=== PATIENT | female | born 1990 | race Caucasian/White ===

== ENCOUNTER 2019-09-13 09:02 | Emergency (ER) | payer OTHER, SELFPAY ==
[2019-09-13 09:30] VITALS: BP 111/87; PULSE 99; RESP 18; TEMP 36.8; O2SAT 100
[2019-09-13 09:56] VITALS: O2SAT 100
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
[2019-09-13 10:32] VITALS: BP 128/74; PULSE 85; RESP 20; TEMP 36.6; O2SAT 99
== END 2019-09-13 10:36 | disposition home or self-care (01) ==
PROVIDERS: Emergency Provider Family Medicine; PCP Physician Assistant
DX: J45.901 Unspecified asthma with (acute) exacerbation (principal)
CPT/HCPCS: 99283

== ENCOUNTER 2019-10-01 12:19 | Outpatient (CLI) | payer OTHER, SELFPAY | END 2019-10-01 12:20 | disposition home or self-care (01) | LOC: CHSLAB 12:21 | PROVIDERS: PCP Physician Assistant; Visit Provider Physician Assistant | DX: J30.2 Other seasonal allergic rhinitis (principal) | CPT/HCPCS: 36415; 82785; 86003 ==

== ENCOUNTER 2020-03-17 11:49 | Outpatient (CLI) | payer OTHER, SELFPAY ==
[2020-03-18 14:04] LABS: SARS-CoV-2 RNA PCR Negative
== END 2020-03-17 11:50 | disposition home or self-care (01) ==
LOC: CHSLAB 11:52
PROVIDERS: PCP Physician Assistant; Visit Provider Physician Assistant
DX: B34.9 Viral infection, unspecified (principal); Z20.828 Contact with and (suspected) exposure to other viral communicable diseases
CPT/HCPCS: 87635; C9803; U0003

== ENCOUNTER 2020-06-16 15:50 | Outpatient (RCR) | payer OTHER, SELFPAY ==
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
== END 2020-07-29 18:09 | disposition home or self-care (01) ==
LOC: CHSPT 15:50
DX: M54.2 Cervicalgia (principal)
CPT/HCPCS: 97014; 97110; 97140; 97161; G0283

== ENCOUNTER 2021-01-14 10:42 | Emergency (ER) | payer OTHER, SELFPAY ==
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
--- NOTE | ~2021-01-14 | XR_ITS ---
EXAMINATION: XR hip RT min 3V w AP pelvis INDICATION: Right hip pain TECHNIQUE: AP view of the pelvis and two views of the right hip are obtained. COMPARISON: None available FINDINGS: Bone alignment is normal. There is no fracture. The soft tissues are unremarkable. An IUD i s noted. IMPRESSION: 1. No acute osseous abnormality. Reviewed, dictated and finalized at location A.
[2021-01-14 10:21] VITALS: BP 121/85; PULSE 84; RESP 16; TEMP 36.9; O2SAT 99
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
[2021-01-14] MEDS: KETOROLAC 30 MG/ML VIAL (*BKC) IV PUSH (11:50)
[2021-01-14] MEDS: diazePAM INJ (*CRX) 10 MG/2 ML SYRINGE 5 MG IV PUSH (11:51)
[2021-01-14] MEDS: ACETAMINOPHEN 500 MG TABLET 1000 MG PO (12:52)
== END 2021-01-15 04:50 | disposition home or self-care (01) ==
PROVIDERS: Emergency Provider Emergency Medicine
DX: S16.1XXA Strain of muscle, fascia and tendon at neck level, initial encounter (principal); S73.101A Unspecified sprain of right hip, initial encounter; F41.9 Anxiety disorder, unspecified; F32.9 Major depressive disorder, single episode, unspecified; F17.210 Nicotine dependence, cigarettes, uncomplicated; V43.52XA Car driver injured in collision with other type car in traffic accident, initial encounter; Y92.410 Unspecified street and highway as the place of occurrence of the external cause
CPT/HCPCS: 72125; 72131; 73502; 81025; 96374; 96375; 99284; A9270; J1885; J3360

== ENCOUNTER 2021-02-02 13:00 | Outpatient (RCR) | payer OTHER, SELFPAY ==
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
--- NOTE | 2021-02-16 13:19 | PTOPEVAL ---
Thank you for referring Jennifer Castillo to [facility].? The patient is scheduled to be seen for therapy? ____x/week for ___ weeks. Please review, sign, date and return this plan of care TIMMY. I agree with and certify that the following plan of care is medically necessary. Referring Physician Date Admitting Provider: Attending Provider: Arlene Mack, JENNIFER Referring Provider: *PT Outpatient Evaluation Start: 02/02/21 13:04 Freq: Status: Active Protocol: Document 02/16/21 11:00 [facility] (Rec: 02/16/21 13:17 [facility] [id number]) Therapy Assessment Status Assessment Status Assessment Status Progress Outpatient Past Medical History Neurological History Hx Migraine Yes Cardiovascular History Hx Cardiac Disorders No Significant History Respiratory History Hx Asthma Yes Gastrointestinal History Hx Gastrointestinal Disorders No Significant History Genitourinary History Hx Genitourinary Disorders No Significant History Musculoskeletal History Hx Back Pain Yes Hematological History Hx Hematological Disorders No Significant History Endocrine History Hx Endocrine Disorders No Significant History HEENT History Hx HEENT Disorders No Significant History Psychosocial History Hx Attention Deficit Disorder Yes Hx Depression Yes Evaluation Information Problem Diagnosis R hip pain (M25.551), R sided low pain back pain with radiculopa (M54.41). Onset 01/14/21 Subjective Information patient reports she feels Query Text:As Reported By Patient/ alright this date. however, Family she was sore yesterday and had 5/10 pain unable to complete her last 30 minutes of work. patient reports her pain in the R anterior hip. she reports no radiation of symptoms into the R lower leg. she reports her back does come out all the time and she needs to see her chriopractor. Pain Assessment Timing of Pain Assessment Timing of Pain Assessment Assessment Pain Scale Pain Scale Used Numeric (1 - 10) Self Report Pain Assessment Right Lower Back Reported Pain Level 0 Greatest Pain Intensity 5 Pain Score Pain Score 0: Self Report Interventions Used Interventions Used By Clinicians Activity or ADL's,Education, Exercise,Heat,Medication Lower Extremity Range of Motion General Lower Extremity Range of Motion Reason Not Measured
--- NOTE | 2021-03-29 14:22 | PTOPEVAL ---
Thank you for referring Jennifer Castillo to [facility] [place].? The patient is scheduled to be seen for therapy? ____x/week for ___ weeks. Please review, sign, date and return this plan of care TIMMY. I agree with and certify that the following plan of care is medically necessary. Referring Physician Date Admitting Provider: Attending Provider: Arlene Mack, JENNIFER Referring Provider: *PT Outpatient Evaluation Start: 02/02/21 13:04 Freq: Status: Active Protocol: Document 03/03/21 14:09 [facility] (Rec: 03/03/21 15:43 [facility] [email or web address]) Therapy Assessment Status Assessment Status Assessment Status Progress Outpatient Past Medical History Neurological History Hx Migraine Yes Cardiovascular History Hx Cardiac Disorders No Significant History Respiratory History Hx Asthma Yes Gastrointestinal History Hx Gastrointestinal Disorders No Significant History Genitourinary History Hx Genitourinary Disorders No Significant History Musculoskeletal History Hx Back Pain Yes Hematological History Hx Hematological Disorders No Significant History Endocrine History Hx Endocrine Disorders No Significant History HEENT History Hx HEENT Disorders No Significant History Psychosocial History Hx Attention Deficit Disorder Yes Hx Depression Yes Evaluation Information Problem Diagnosis low back pain with radiculopathy Onset 01/14/21 Subjective Information Patient states that she has Query Text:As Reported By Patient/ been doing her exercises and Family they are a lot easier. She states that she still gets sore by the end of the day at work, but it is not as bad as it was. She states that the L hip is starting to feel a little better. She still has pain in the hip flexor down the quad. Patient states that she still has quite a bit of pressure on the L side of the lumbar spine. Pain Assessment Timing of Pain Assessment Timing of Pain Assessment Assessment Pain Scale Pain Scale Used Numeric (1 - 10) Self Report Pain Assessment Left Lower Back Reported Pain Level 0 Greatest Pain Intensity 5 Right Lower Back Reported Pain Level 0 Greatest Pain Intensity 0 Pain Score Pain Score 0,0: Self Report Interventions Used Interventions Used By Clinicians Activity or ADL's,Electrical
== END 2021-03-31 10:19 | disposition home or self-care (01) ==
LOC: CHSPT 13:00
PROVIDERS: PCP Physician Assistant; Visit Provider Physician Assistant
DX: M25.551 Pain in right hip (principal); M54.41 Lumbago with sciatica, right side
CPT/HCPCS: 97014; 97110; 97140; 97161; G0283

== ENCOUNTER 2021-09-29 09:42 | Outpatient (CLI) | payer OTHER, SELFPAY ==
[2021-09-29 11:17] LABS: SARS-CoV-2 RNA PCR Negative (Negative)
== END 2021-09-29 09:43 | disposition home or self-care (01) ==
LOC: CHSLAB 09:49
PROVIDERS: PCP Physician Assistant; Visit Provider Physician Assistant
DX: Z20.822 Contact with and (suspected) exposure to COVID-19 (principal)
CPT/HCPCS: C9803; U0003; U0005

== ENCOUNTER 2021-12-22 05:34 | Emergency (ER) | payer OTHER, SELFPAY ==
--- NOTE | ~2021-12-22 | CT_ITS ---
EXAMINATION: CT abdomen pelvis wo con DATE: 12/22/2021 06:27 INDICATION: Low abdominal pain. Diarrhea. TECHNIQUE: Computed tomography (CT) of the abdomen and pelvis was performed without intravenous contr ast. Automated exposure control and iterative reconstruction technique were employed. The dose-length product was 388.23 mGy-cm. COMPARISON: None. FINDINGS: The visualized portions of the lung bases are clear without pneumonia or pleural effusion. The heart size is normal. No pericardial effusion. The liver, gallbladder, spleen, pancreas, and adre nal glands are normal. There are cysts in right kidney measuring up to 12 mm. There are three [address] ones in right kidney. There are four stones in left kidney measuring up to 3 mm. There is an intraute rine device in expected position. There are no dilated loops of bowel. There is a large volume of sto ol in the colon. The appendix is normal. There are no pathologically enlarged lymph nodes. There is n o free intraperitoneal fluid. There is mild thoracic spondylosis. IMPRESSION: 1. Small bilateral nonobstructing kidney stones. 2. Large volume of stool in the colon. Reviewed, dictated and finalized at location A.
[2021-12-22 05:41] VITALS: BP 119/84; PULSE 72; RESP 20; TEMP 36.3; O2SAT 98
[2021-12-22 06:00] LABS: Basophils Absolute Auto 0.02 K/mm3 (0.00-0.10); Basophils Percent Auto 0.3 % (0.0-1.0); Eosinophils Absolute Auto 0.11 K/mm3 (0.02-0.50); Eosinophils Percent Auto 1.6 % (1.0-6.0); Hematocrit 38.4 % (35.0-49.0); Immature Granulocyte Absolute 0.03 K/mm3 (0.00-0.00); Immature Granulocyte Percent A 0.4 % (0.0-0.0); Lymphocytes Percent Auto 20.3 % (18.0-42.0); Mean Corpuscular HGB Conc 33.9 g/dL (32.0-36.0); Mean Corpuscular Hemoglobin 31.5 pg (27.0-31.0); Mean Platelet Volume 10.6 fl (9.2-11.8); Monocytes Absolute Auto 0.68 K/mm3 (0.10-0.90); Monocytes Percent Auto 9.9 % (2.0-11.0); Neutrophils Absolute Auto 4.7 K/mm3 (1.7-7.2); Neutrophils Percent Auto 67.5 % (50.0-70.0); Platelet Count Result 256 K/mm3 (150-420); Red Blood Count 4.13 M/mm3 (4.20-5.40); Red Cell Distribution Width 12.4 % (11.6-14.4); White Blood Count 6.9 K/mm3 (4.8-10.8)
[2021-12-22] MEDS: ONDANSETRON INJ 4 MG/2 ML VIAL IV PUSH (06:06)
[2021-12-22] MEDS: PANTOPRAZOLE SODIUM IV 40 MG VIAL IV PUSH (06:07)
[2021-12-22] MEDS: SODIUM CHLORIDE 0.9% IV 1,000 ML 999 ML IV CONT (06:07)
[2021-12-22] MEDS: KETOROLAC (*BKC) 60 MG/2 ML VIAL IM (06:07)
[2021-12-22 06:11] LABS: SPREG INTERNAL CONTROL Positive; Serum Qual hCG Negative
[2021-12-22 06:16] LABS: Alanine Aminotransferase 28 U/L (14-59); Albumin Level 3.9 g/dL (3.4-5.0); Alkaline Phosphatase 57 U/L (46-116); Anion Gap 6 mmol/L (8-16); Aspartate Amino Transferase 18 U/L (15-37); Bilirubin,Total 0.5 mg/dL (0.00-1.00); Blood Urea Nitrogen 10 mg/dL (7-18); Calcium 8.8 mg/dL (8.5-10.1); Carbon Dioxide 24 mmol/L (21-32); Chloride 106 mmol/L (98-108); Estimated CRCL calculation 98 ml/min; Estimated Glomerular Filt Rate > 60; Glucose 111 mg/dL (70-99); Lipase 84 U/L (73-393); Osmolality Calculated 282 mOsm/kg (285-295); Potassium 3.7 mmol/L (3.5-5.1); Sodium 136 mmol/L (136-145)
[2021-12-22 06:21] LABS: Lactic Acid Reflex 0.7 mmol/L (0.4-2.0)
--- NOTE | 2021-12-22 06:45 | ED.ABDPAIN ---
HPI - Abdominal Pain General Chief Complaint: Abdominal Pain Stated Complaint: Belly Pain Time Seen by Provider: 12/22/21 05:38 Source: patient and RN notes reviewed Mode of arrival: ambulatory Limitations: no limitations History of Present Illness MD elicited complaint: abdominal pain and other (passed watery stool 1 day ago. still feels constipated with crampy lower abdominal pain) Pertinent past history: constipation Onset (ago): day(s) (4) Pain Consistency: constant Location: suprapubic Severity: moderate Pain scale (0-10): 8 Quality: aching Radiation: none Exacerbating factors: nothing Relieving factors: bowel movement Associated symptoms: nausea, diarrhea and constipation Related Data Patient : No Allergies Allergy/AdvReac Type Severity Reaction Status Date / Time No Known Allergies Allergy Verified 12/22/21 05:38 Review of Systems Review of Systems: All systems reviewed & are unremarkable except as noted in HPI and below Constitutional: Constitutional: Reports no additional constitutional complaints Eyes: Eyes: Reports no additional eye complaints ENT: Reports system reviewed and no additional complaints, except as documented Cardiovascular: Cardiovascular: Reports no additional cardiovascular complaints Respiratory: Respiratory: Reports no additional respiratory complaints Gastrointestinal: Gastrointestinal: Reports abdominal pain, Reports constipation and Reports heartburn Genitourinary: Genitourinary: Reports no additional female genitourinary complaints Musculoskeletal: Musculoskeletal: Reports no additional musculoskeletal complaints Integumentary/Breasts: Skin/Breast: Reports system reviewed and no additional complaints, except as docu Neurologic: Reports system reviewed and no additional complaints, except as documented Psychiatric: Psychiatric: Reports no additional psychiatric complaints Endocrine: Endocrine: Reports no additional endocrine complaints Hematologic/Lymphatic: Hematologic/Lymphatic: Reports no additional hematologic/lymphatic complaints Allergic/Immunologic: Allergic/Immunologic: Reports no additional allergic/immunologic complaints PMFSH Past Medical History Medical History (Updated 12/22/21 @ 07:02 by Dereje Vu MD) Asthma Constipation History of anxiety History of depression Social History Social History (Updated 03/28/19 @ 13:38 by Wesly Soliz MD) Smoking status: Current some day smoker Tobacco type: cigars Exam Const: General: no acute distress Nutritional Appearance: well nourished Orientation/consciousness: patient oriented x3 Limitations: no limitations HENMT: Head: normal to inspection Ears: external ears normal, TM's normal bilaterally and EAC's normal General nose exam: Normal external nose present and Normal nares present Face and sinus: normal facial exam and sinuses nontender Mouth: Yes Normal oral and palatal mucosa present and Yes moist mucous membranes Teeth and gingiva: dentition normal Throat: posterior oropharynx normal Eyes: Conjunctivae: conjunctivae normal Pupils: Equal, round and reactive pupils present EOM: EOMs intact bilaterally Neck: Neck: normal visual inspection, no lymphadenopathy and no meningeal signs Chest: Chest palpation & inspection: normal inspection of the chest Resp: Effort & Inspection: normal respiratory effort Auscultation: clear to auscultation bilaterally Cardio: Rate: regular rate Rhythm: regular rhythm GI: GI Palp: Yes Soft to palpation and Yes Tenderness to palpation present (GI) (minimal suprapubic tenderness) Auscultation: normal bowel sounds : General: Yes bladder normal to palpation and Yes no CVA tenderness Bimanual exam- vagina & uterus: bladder normal to palpation Back/Spine/Pelvis: Back: no CVA tenderness Skin: General skin exam: normal color Rashes: no rashes Wounds: no wounds Neuro: General: patient oriented x3, moves all extremities, no meningeal signs,
[2021-12-22 07:10] LABS: Add Urine Microscopic? YES; Appearance Urine Slightly Cloudy (Clear); Bilirubin Urine Negative (Negative); Blood Urine Negative (Negative); Color Urine Yellow (Yellow); Glucose Urine UA Negative (Negative); Ketones Urine Negative (Negative); Leukocyte Esterase Ur 3+ LEU/UL (Negative); Nitrate Urine Negative (Negative); Protein Urine Negative (Negative); Specific Grav Ur 1.025 (1.010-1.020); Urobilinogen Urine 0.2 mg/dL (0.2-1.0); pH Urine 6.5 (5.0-8.0)
[2021-12-22 07:15] LABS: Bacteria Urine 3+ /hpf; RBC Urine 0-2 /hpf (0-2); Squamous Epithelial Cell Urine Moderate /hpf (Few); WBC Urine 31-50 /hpf (0-3)
[2021-12-22] MEDS: MAG HYDROX/ALUMINUM HYD/SIMETH 30 ML, PHENobarb/HYOSCY/ATROPINE/SCOP 32.4 MG, LIDOCAINE... PO (07:19)
[2021-12-22] MEDS: cefTRIAXone 1 GM, LIDOCAINE HCL 1% LOCAL INJ 2.1 ML IM (07:48)
[2021-12-22 08:11] VITALS: BP 110/80; PULSE 70; RESP 20; TEMP 36.7; O2SAT 99
== END 2021-12-22 08:14 | disposition home or self-care (01) ==
PROVIDERS: Emergency Provider Emergency Medicine; PCP Physician Assistant
DX: K59.00 Constipation, unspecified (principal); R82.90 Unspecified abnormal findings in urine
CPT/HCPCS: 36415; 74176; 80053; 81001; 83605; 83690; 84703; 85025; 87086; 96361; 96372; 96374; 96375; 99284; A9270; C9113; J0696; J1885; J2405; J7030